=== PATIENT | male | born 1955 | race Caucasian/White ===

== ENCOUNTER 2020-07-26 22:39 | Day surgery (SDCO) | payer OTHER ==
[~2020-07-26] VITALS: Ht 182.9 cm; Wt 86.2 kg
[2020-07-26 23:16] LABS: BASOPHIL 0.2 % (0-2); EOSINOPHIL 0 % (0-5); HCT 41.6 % (42.0-52.0); HGB 13.5 g/dl (13.2-18.0); LYMPHOCYTE 8.4 % (15-48); MCH 29.7 pg (25.0-31.0); MCHC 32.5 g/dL (32.0-36.0); MCV 91.6 fL (78.0-100.0); MONOCYTE 5.5 % (0-12); MPV 10.7 fL (6.0-9.5); NEUTROPHIL 85.2 % (41-80); NRBC 0; PLT 277 K/uL (150-400); RBC 4.54 M/uL (4.70-6.00); RDW 13.3 % (11.5-14.0); WBC 8.3 K/uL (4.0-10.5)
[2020-07-26 23:20] LABS: ALBUMIN 3.2 g/dL (3.4-5.0); BILIRUBIN - TOTAL 0.6 mg/dL (0.2-1.0); BUN/CREAT RATIO (CALC) 18.9 RATIO; CREATININE 2.28 mg/dL (0.67-1.17); GLOBULIN (CALCULATION) 3.9 g/dL; POTASSIUM 3.7 mmol/L (3.5-5.1); TOTAL PROTEIN 7.1 g/dL (6.4-8.2)
[2020-07-27 00:32] LABS: LACTIC ACID 1.4 mmol/L (0.4-1.9)
[2020-07-27 01:26] LABS: BILIRUBIN NEGATIVE (NEGATIVE); BLOOD NEGATIVE Ery/uL (NEGATIVE); CLARITY CLEAR (CLEAR); COLOR YELLOW (YELLOW); GLUCOSE (U) NORMAL (NORMAL); LEUKOCYTES NEGATIVE Leu/uL (NEGATIVE); NITRITE NEGATIVE (NEGATIVE); PROTEIN NEGATIVE (NEGATIVE); UROBILINOGEN 0.2 mg/dL (0.2-1.0); pH 5.5 (5.0-9.0)
[2020-07-27] MEDS ORDERED: ACETAMINOPHEN325 MG PO (06:16)
[2020-07-27] MEDS ORDERED: ZOFRAN4 M1 PO (06:16)
--- NOTE | 2020-07-27 06:17 | NUR ---
0550: PT RECEIVED ADMIT FROM ED. VSS. ORIENTED TO ROOM.
[2020-07-28 06:46] LABS: BASOPHIL 0.4 % (0-2); EOSINOPHIL 0 % (0-5); HCT 37.4 % (42.0-52.0); HGB 12.1 g/dl (13.2-18.0); MCH 30.9 pg (25.0-31.0); MCHC 32.4 g/dL (32.0-36.0); MCV 95.7 fL (78.0-100.0); MONOCYTE 5.8 % (0-12); MPV 10.4 fL (6.0-9.5); NRBC 0; PLT 288 K/uL (150-400); RBC 3.91 M/uL (4.70-6.00); RDW 13.7 % (11.5-14.0); WBC 7.1 K/uL (4.0-10.5)
[2020-07-28 06:47] LABS: LYMPHOCYTE 13.8 % (15-48)
[2020-07-28 07:57] LABS: ALBUMIN 2.5 g/dL (3.4-5.0); BILIRUBIN - TOTAL 0.4 mg/dL (0.2-1.0); C-REACTIVE PROTEIN 13.9 mg/dL (<=0.90); CREATININE 1.43 mg/dL (0.67-1.17); POTASSIUM 4.8 mmol/L (3.5-5.1); TOTAL PROTEIN 5.5 g/dL (6.4-8.2)
--- NOTE | 2020-07-28 13:45 | NUR ---
07/28/20 A referral was made to [facility] for 02 at 2 L in anticipation of discharge for 07/29/20. Report given to MS BESS Loya.
[2020-07-29 05:49] LABS: BASOPHIL 0.6 % (0-2); EOSINOPHIL 0 % (0-5); HCT 38.4 % (42.0-52.0); HGB 12.2 g/dl (13.2-18.0); LYMPHOCYTE 13.2 % (15-48); MCH 30.8 pg (25.0-31.0); MCHC 31.8 g/dL (32.0-36.0); MONOCYTE 7.6 % (0-12); MPV 10.2 fL (6.0-9.5); NEUTROPHIL 74.9 % (41-80); NRBC 0; PLT 320 K/uL (150-400); RBC 3.96 M/uL (4.70-6.00); RDW 13.5 % (11.5-14.0); WBC 11.4 K/uL (4.0-10.5)
[2020-07-29 06:08] LABS: BUN/CREAT RATIO (CALC) 26.7 RATIO; CREATININE 1.2 mg/dL (0.67-1.17); POTASSIUM 3.5 mmol/L (3.5-5.1)
[2020-07-29] MEDS ORDERED: ZINC SULFATE220 M1 PO (09:08)
[2020-07-29] MEDS ORDERED: ASCORBIC ACID500 MG PO (09:08)
[2020-07-29] MEDS ORDERED: VITAMIN D325 MC1 PO (09:08)
[2020-07-29] MEDS ORDERED: DEXAMETHASONE 2M2 MG PO (09:08)
[2020-07-29] MEDS ORDERED: ROBITUSSIN W/COD5 ML PO (10:34)
== END 2020-07-29 13:22 | disposition home or self-care (01) ==
LOC: FER 22:39 → FMS 07-27 04:58
PROVIDERS: Allergy & Immunology Allergy; Emergency Medicine; Nurse Practitioner; ADMIT Internal Medicine
DX: U07.1 COVID-19 (principal); J12.82 Pneumonia due to coronavirus disease 2019; J96.01 Acute respiratory failure with hypoxia; N17.9 Acute kidney failure, unspecified; I10 Essential (primary) hypertension; R11.2 Nausea with vomiting, unspecified; E86.0 Dehydration; E87.0 Hyperosmolality and hypernatremia; Z99.81 Dependence on supplemental oxygen; Z80.1 Family history of malignant neoplasm of trachea, bronchus and lung; Z90.49 Acquired absence of other specified parts of digestive tract; Z88.8 Allergy status to other drugs, medicaments and biological substances; Z87.19 Personal history of other diseases of the digestive system
CPT/HCPCS: 36415; 71045; 71250; 80048; 80053; 81003; 82728; 83605; 83690; 84145; 85025; 86140; 87040; C9113; C9399; G0378; J0780; J1200; J1650; J2405; J2543; J7030; J7050; J7070; J8540